=== PATIENT | female | born 1950 | race Caucasian/White ===

== ENCOUNTER 2024-10-29 07:21 | Emergency (ER) | payer BC ==
[~2024-10-29] VITALS: Ht 152.4 cm; Wt 40.8 kg
[2024-10-29] MEDS ORDERED: ALBU18HF2 INH (08:06)
[2024-10-29] MEDS ORDERED: BENZ-13 PO (08:06)
[2024-10-29] MEDS ORDERED: IBUP-1955 PO (08:06)
[2024-10-29 08:16] VITALS: BP 124/74; TEMP 98; O2SAT 99
== END 2024-10-29 08:17 | disposition home or self-care (01) ==
LOC: ER 07:32
DX: J06.9 Acute upper respiratory infection, unspecified (principal)